=== PATIENT | female | born 2000 | race African-American/Black ===

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

== ENCOUNTER 2024-05-07 10:26 | Emergency (ER) | payer OTHER ==
[2024-05-07] MEDS ORDERED: Ibuprofen 200 MG TAB ONE (10:58)
== END 2024-05-07 12:07 | disposition home or self-care (01) ==
LOC: NAV ERS 10:26
DX: S93.602A Unspecified sprain of left foot, initial encounter (principal); I10 Essential (primary) hypertension; X50.1XXA Overexertion from prolonged static or awkward postures, initial encounter; Y93.01 Activity, walking, marching and hiking